=== PATIENT | male | born 1970 | race Caucasian/White ===

== ENCOUNTER 2019-11-29 16:46 | Inpatient (IN) ==
[2019-11-29 17:29] LABS: Hematocrit 36.8 % (37.5-50.1); Hemoglobin 12.4 g/dL (12.9-16.9); Immature Granulocytes % 0.1 % (0-4); Lymphocytes % 34.1 %; Mean Corpuscular HGB Conc 33.7 g/dL (31.6-35.5); Mean Corpuscular Hemoglobin 31.6 pg (28.0-33.3); Mean Corpuscular Volume 93.9 fL (83.0-100.0); Mean Platelet Volume 8.6 fL (9.4-12.4); Platelet Count 410 K/mcL (140-400); Red Blood Count 3.92 M/mcL (4.19-5.50); Red Cell Distribution Width 12.5 % (11.5-14.5); Segmented Neutrophils % 50.5 %; White Blood Count 7.3 K/mcL (4.3-11.1)
[2019-11-29 17:30] LABS: Basophils % 0.4 %; Eosinophils # 0.3 K/mcL (0.0-0.6); Lymphocytes # 2.5 K/mcL (0.6-4.6); Monocytes # 0.8 K/mcL (0.0-1.3); Monocytes % 10.9 %; Neutrophils # 3.7 K/mcL (1.6-8.9)
[2019-11-29 17:56] LABS: Alanine Aminotransferase 44 Units/L (7-52); Albumin 3.6 g/dL (3.5-5.7); Albumin/Globulin Ratio 1.2 (1.1-2.2); Alkaline Phosphatase 110 Units/L (34-104); Aspartate Amino Transferase 28 Units/L (13-39); BUN/Creatinine Ratio 18 (6-26); Bilirubin,Total 0.4 mg/dL (0.3-1.0); Blood Urea Nitrogen 34 mg/dL (6-20); Calcium 9.1 mg/dL (8.6-10.3); Carbon Dioxide 24 mEq/L (23-29); Chloride 108 mEq/L (98-107); Globulin 2.9 g/dL (2.4-3.5); Glucose 124 mg/dL (70-105); Osmolality,Calculated 293 (280-300); Sodium 137 mEq/L (136-145); Total Protein 6.5 g/dL (6.4-8.9); Troponin I < 0.03 ng/mL (< 0.04); eGFR For African Americans 46 (> 60); eGFR For Non-African Americans 38 (> 60)
[2019-11-29] MEDS ORDERED: Furosemide 40 MG/4 ML VIAL IVP ONE (21:01)
[2019-11-29] MEDS ORDERED: Naloxone 0.4 MG/ML INJ IVP PRN (22:00)
[2019-11-29] MEDS ORDERED: Perflutren Lipid Microsphere 1.3 ML in 0.9 % Sodium Chloride 8.7 ML IVP PRN (22:01)
[2019-11-29] MEDS ORDERED: Dextrose Gel 15 GM/37.5 ML TUBE PO PRN ×2 (22:04)
[2019-11-29] MEDS ORDERED: *HR* Dextrose 50 % in Water (Vial) 50 ML VIAL IVP PRN (22:04)
[2019-11-29] MEDS ORDERED: D5% in Water 1,000 ML IVC PRN (22:04)
[2019-11-29] MEDS ORDERED: Gabapentin 300 MG CAPSULE PO SCH (22:30)
[2019-11-29] MEDS: *HR* HYDROcodone/Acet 5/325 mg TABLET PO PRN (22:31)
[2019-11-29 23:17] LABS: Bilirubin,Urine Negative (Negative); Blood,Urine Trace (Negative); Clarity,Urine Clear (Clear); Color,Urine Colorless (Yellow); Glucose,Urine (UA) Normal (Normal); Hyaline Casts,Urine Few per lpf (None Seen); Ketones,Urine Negative (Negative); Leukocyte Esterase,Urine Negative (Negative); Mucus,Urine Few per lpf (None-Few); Nitrite,Urine Negative (Negative); Protein,Urine 100 mg/dL (Neg-Trace); RBC,Urine 0-3 per hpf (0-3); Specific Gravity,Urine 1.007 (1.010-1.025); Urobilinogen,Urine Normal (Normal); WBC,Urine 0-3 per hpf (0-3)
[2019-11-29 23:24] LABS: Protein/Creatinine Ratio,Urine 5.56 mg/mg (0.00-0.20); Sodium, Urine 95.6 mEq/L
[2019-11-30] MEDS: Insulin DETEMIR 100 UNIT/ML X5UNITS SQ SCH ×2 (00:02→20:17)
[2019-11-30 04:40] LABS: Hematocrit 32.9 % (37.5-50.1); Mean Corpuscular HGB Conc 33.4 g/dL (31.6-35.5); Mean Corpuscular Hemoglobin 31.4 pg (28.0-33.3); Mean Platelet Volume 8.9 fL (9.4-12.4); Platelet Count 329 K/mcL (140-400); Red Cell Distribution Width 12.5 % (11.5-14.5); White Blood Count 5.5 K/mcL (4.3-11.1)
[2019-11-30 04:59] LABS: Calcium 8.6 mg/dL (8.6-10.3); Potassium 4.5 mEq/L (3.5-5.1)
[2019-11-30] MEDS: *HR* HYDROcodone/Acet 5/325 mg TABLET PO PRN ×3 (05:40→19:23)
[2019-11-30] MEDS: *HR* Heparin 5,000 UNIT/ML VIAL SQ SCH ×3 (05:40→20:14)
[2019-11-30] MEDS ORDERED: Gabapentin 300 MG CAPSULE PO SCH (06:00)
[2019-11-30] MEDS: Aspirin Enteric Coated 81 MG Tablet PO SCH (08:24)
[2019-11-30] MEDS: Insulin LISPRO 300 UNITS/3 ML VIAL SQ SCH ×3 (08:24→17:04)
[2019-11-30] MEDS ORDERED: NON-FORMULARY MEDICATION 1 EACH EACH (Tadalafil [Cialis] 20 MG) PO SCH (09:00)
[2019-11-30] MEDS: Furosemide 40 MG/4 ML VIAL IVP SCH ×2 (12:16→17:04)
[2019-11-30 12:43] LABS: Complement C3 141 mg/dL (87-200)
[2019-11-30] MEDS: GENVOYA PO SCH (14:23)
[2019-11-30 17:26] LABS: Calcium 8.7 mg/dL (8.6-10.3); Potassium 5.4 mEq/L (3.5-5.1)
[2019-12-01] MEDS: *HR* HYDROcodone/Acet 5/325 mg TABLET PO PRN ×2 (01:28→17:13)
[2019-12-01 03:15] LABS: Basophils % 0.4 %; Eosinophils # 0.2 K/mcL (0.0-0.6); Eosinophils % 4.3 %; Hematocrit 33.4 % (37.5-50.1); Hemoglobin 11.3 g/dL (12.9-16.9); Immature Granulocytes % 0.2 % (0-4); Lymphocytes % 38.4 %; Mean Corpuscular HGB Conc 33.8 g/dL (31.6-35.5); Mean Corpuscular Hemoglobin 31.6 pg (28.0-33.3); Mean Corpuscular Volume 93.3 fL (83.0-100.0); Mean Platelet Volume 8.8 fL (9.4-12.4); Monocytes # 0.7 K/mcL (0.0-1.3); Neutrophils # 2.2 K/mcL (1.6-8.9); Platelet Count 359 K/mcL (140-400); Red Blood Count 3.58 M/mcL (4.19-5.50); Red Cell Distribution Width 12.3 % (11.5-14.5); Segmented Neutrophils % 43.7 %; White Blood Count 5.1 K/mcL (4.3-11.1)
[2019-12-01 03:33] LABS: Chol/HDL Ratio 5.4 (0-4.9)
[2019-12-01 04:00] LABS: Hepatitis B Surface Antigen Nonreactive (Nonreactive)
[2019-12-01 04:29] LABS: Hepatitis B Core IgM Nonreactive (Nonreactive); Hepatitis C Virus Antibody Nonreactive (Nonreactive)
[2019-12-01 04:31] LABS: Hepatitis A Antibody IgM Nonreactive (Nonreactive)
[2019-12-01] MEDS: *HR* Heparin 5,000 UNIT/ML VIAL SQ SCH ×2 (05:37→14:43)
[2019-12-01] MEDS: Insulin LISPRO 300 UNITS/3 ML VIAL SQ SCH ×3 (07:54→17:14)
[2019-12-01 08:17] LABS: Prothrombin Time 11.4 Seconds (9.4-12.1)
[2019-12-01] MEDS: Furosemide 40 MG/4 ML VIAL IVP SCH ×2 (08:39→17:13)
[2019-12-01] MEDS: amLODIPine 5 MG TABLET PO SCH ×2 (08:39→09:38)
[2019-12-01] MEDS: Aspirin Enteric Coated 81 MG Tablet PO SCH (09:37)
[2019-12-01] MEDS ORDERED: *HR* LORazepam 2 MG/ML VIAL IVP ONE ×2 (09:57→14:15)
[2019-12-01] MEDS ORDERED: amLODIPine 5 MG TABLET PO ONE (10:00)
[2019-12-01 12:15] LABS: Calcium 8.7 mg/dL (8.6-10.3); Potassium 5.3 mEq/L (3.5-5.1)
[2019-12-01] MEDS: GENVOYA PO SCH (12:58)
[2019-12-01] MEDS: Insulin DETEMIR 100 UNIT/ML X5UNITS SQ SCH (19:52)
[2019-12-02] MEDS: *HR* Heparin 5,000 UNIT/ML VIAL SQ SCH ×5 (00:09→21:37)
[2019-12-02] MEDS ORDERED: *HR* Metoprolol 5 MG/5 ML VIAL IVP ONE (01:42)
[2019-12-02] MEDS ORDERED: Melatonin 3 MG TABLET PO ONE ×2 (01:43→20:46)
[2019-12-02 03:35] LABS: Hematocrit 35.5 % (37.5-50.1); Hemoglobin 11.8 g/dL (12.9-16.9); Mean Corpuscular HGB Conc 33.2 g/dL (31.6-35.5); Mean Corpuscular Hemoglobin 31.6 pg (28.0-33.3); Mean Corpuscular Volume 95.2 fL (83.0-100.0); Mean Platelet Volume 9.4 fL (9.4-12.4); Platelet Count 443 K/mcL (140-400); Red Blood Count 3.73 M/mcL (4.19-5.50); Red Cell Distribution Width 12.4 % (11.5-14.5); White Blood Count 6.4 K/mcL (4.3-11.1)
[2019-12-02 03:54] LABS: Potassium 4.7 mEq/L (3.5-5.1)
[2019-12-02] MEDS: Insulin LISPRO 300 UNITS/3 ML VIAL SQ SCH ×3 (08:15→16:11)
[2019-12-02] MEDS: Furosemide 40 MG/4 ML VIAL IVP SCH ×2 (08:15→16:12)
[2019-12-02] MEDS ORDERED: amLODIPine 5 MG TABLET PO STA (09:00)
[2019-12-02] MEDS ORDERED: *HR* Labetalol 20 MG/4 ML SYRINGE IVP PRN (09:03)
[2019-12-02] MEDS ORDERED: *HR* LORazepam 2 MG/ML VIAL IVP PRN (09:04)
[2019-12-02] MEDS: amLODIPine 5 MG TABLET PO SCH (10:00)
[2019-12-02] MEDS ORDERED: 0.9 % Sodium Chloride 500 ML ONE (10:38)
[2019-12-02] MEDS ORDERED: *HR* FentaNYL (PF) 100 MCG/2 ML VIAL IVP ONE (10:55)
[2019-12-02] MEDS ORDERED: *HR* Midazolam HCl 2 MG/2 ML VIAL IVP ONE (10:55)
[2019-12-02] MEDS ORDERED: *HR* Midazolam HCl 2 MG/2 ML VIAL ONE (10:58)
[2019-12-02] MEDS ORDERED: *HR* FentaNYL (PF) 100 MCG/2 ML VIAL ONE (10:58)
[2019-12-02] MEDS: GENVOYA PO SCH (11:45)
[2019-12-02] MEDS: Insulin DETEMIR 100 UNIT/ML X5UNITS SQ SCH ×2 (15:17→21:40)
[2019-12-02] MEDS: *HR* HYDROcodone/Acet 5/325 mg TABLET PO PRN (21:37)
[2019-12-03] MEDS: *HR* Heparin 5,000 UNIT/ML VIAL SQ SCH ×2 (05:43→14:35)
[2019-12-03 06:39] LABS: ANA IgG by ELISA DETECTED (None Detected)
[2019-12-03 08:10] LABS: Calcium 9.1 mg/dL (8.6-10.3); Magnesium 2.3 mg/dL (1.6-2.6); Phosphorous 4.7 mg/dL (2.7-4.5); Potassium 4.1 mEq/L (3.5-5.1)
[2019-12-03] MEDS: Furosemide 40 MG/4 ML VIAL IVP SCH ×2 (08:59→16:34)
[2019-12-03] MEDS: amLODIPine 5 MG TABLET PO SCH (08:59)
[2019-12-03] MEDS: GENVOYA PO SCH (08:59)
[2019-12-03] MEDS: Insulin LISPRO 300 UNITS/3 ML VIAL SQ SCH ×3 (09:00→16:33)
[2019-12-03] MEDS: Insulin DETEMIR 100 UNIT/ML X5UNITS SQ SCH ×2 (09:00→20:56)
[2019-12-03 12:01] LABS: Serine Protease-3 Antibody 2 AU/mL (0-19)
[2019-12-03] MEDS ORDERED: *HR* Heparin 5,000 UNIT/ML VIAL IVP ONE (17:36)
[2019-12-03] MEDS ORDERED: *HR* Heparin 5,000 UNIT/ML VIAL IVP PRN ×2 (17:36)
[2019-12-03 18:43] LABS: Heparin anti-factor XA UFH 0.11 IU/mL (0.30-0.70); INR 0.9; Prothrombin Time 10.1 Seconds (9.4-12.1)
[2019-12-03 18:45] LABS: Mean Corpuscular HGB Conc 34.3 g/dL (31.6-35.5); Mean Corpuscular Hemoglobin 32.5 pg (28.0-33.3); Mean Platelet Volume 8.9 fL (9.4-12.4); Platelet Count 526 K/mcL (140-400); Red Blood Count 4.21 M/mcL (4.19-5.50); Red Cell Distribution Width 12.4 % (11.5-14.5); White Blood Count 7.5 K/mcL (4.3-11.1)
[2019-12-03 18:46] LABS: Hemoglobin 13.7 g/dL (12.9-16.9)
[2019-12-03 18:57] LABS: % Iron Saturation 23 % (20-55); Iron 74 mcg/dL (65-175); Transferrin 234 mg/dL (203-362)
[2019-12-03 19:15] LABS: Ferritin 90 ng/mL (20-250)
[2019-12-03] MEDS: *HR* HYDROcodone/Acet 5/325 mg TABLET PO PRN (20:53)
[2019-12-03] MEDS: Heparin 25,000UNIT/250ML 1/2NS 25,000 UNIT/250 ML IV.SOLN IVC SCH (20:58)
[2019-12-03 23:10] LABS: ANA HEp-2 IgG IFA DETECTED (<1:80); Anti Nuclear Ab Pattern HOMOGENEOUS
[2019-12-04 03:44] LABS: Calcium 8.8 mg/dL (8.6-10.3); Potassium 4.5 mEq/L (3.5-5.1)
[2019-12-04] MEDS: Insulin LISPRO 300 UNITS/3 ML VIAL SQ SCH ×3 (08:22→17:46)
[2019-12-04] MEDS: Furosemide 40 MG/4 ML VIAL IVP SCH ×2 (08:22→17:48)
[2019-12-04] MEDS: Insulin DETEMIR 100 UNIT/ML X5UNITS SQ SCH ×2 (08:23→21:17)
[2019-12-04] MEDS: amLODIPine 5 MG TABLET PO SCH (08:23)
[2019-12-04] MEDS: GENVOYA PO SCH (08:24)
[2019-12-04] MEDS ORDERED: Insulin DETEMIR 100 UNIT/ML X5UNITS SQ ONE (12:24)
[2019-12-04 12:40] LABS: GBM IgG Multiplex Bead Assay 0 AU/mL (0-19); Glomerular Basement Memb IgG NEGATIVE (Negative)
[2019-12-04] MEDS: *HR* HYDROcodone/Acet 5/325 mg TABLET PO PRN (20:06)
[2019-12-04] MEDS: Heparin 25,000UNIT/250ML 1/2NS 25,000 UNIT/250 ML IV.SOLN IVC SCH (20:13)
[2019-12-04] MEDS ORDERED: Insulin DETEMIR 100 UNIT/ML X5UNITS SQ SCH (21:00)
[2019-12-04] MEDS: *HR* LORazepam 0.5 MG TABLET PO PRN (21:14)
[2019-12-05] MEDS: *HR* HYDROcodone/Acet 5/325 mg TABLET PO PRN ×2 (02:06→19:48)
[2019-12-05 04:44] LABS: Basophils % 0.1 %; Eosinophils % 0.1 %; Hematocrit 33.6 % (37.5-50.1); Immature Granulocytes % 0.5 % (0-4); Lymphocytes # 1.4 K/mcL (0.6-4.6); Lymphocytes % 9.6 %; Mean Corpuscular HGB Conc 33.9 g/dL (31.6-35.5); Mean Corpuscular Hemoglobin 31.4 pg (28.0-33.3); Mean Corpuscular Volume 92.6 fL (83.0-100.0); Mean Platelet Volume 9.5 fL (9.4-12.4); Monocytes # 0.4 K/mcL (0.0-1.3); Monocytes % 2.7 %; Neutrophils # 12.4 K/mcL (1.6-8.9); Platelet Count 485 K/mcL (140-400); Red Blood Count 3.63 M/mcL (4.19-5.50); Red Cell Distribution Width 12.1 % (11.5-14.5)
[2019-12-05 04:56] LABS: White Blood Count 14.2 K/mcL (4.3-11.1)
[2019-12-05 04:57] LABS: Hemoglobin 11.4 g/dL (12.9-16.9)
[2019-12-05 05:03] LABS: Albumin 3.3 g/dL (3.5-5.7); Calcium 8.7 mg/dL (8.6-10.3); Phosphorous 4.1 mg/dL (2.7-4.5); Potassium 4.2 mEq/L (3.5-5.1)
[2019-12-05] MEDS: Insulin DETEMIR 100 UNIT/ML X5UNITS SQ SCH ×2 (08:27→21:17)
[2019-12-05] MEDS: Insulin LISPRO 300 UNITS/3 ML VIAL SQ SCH ×3 (08:27→17:19)
[2019-12-05] MEDS: GENVOYA PO SCH (08:28)
[2019-12-05] MEDS: amLODIPine 5 MG TABLET PO SCH (08:28)
[2019-12-05 15:10] LABS: Total Volume 24 Hour,Urine 2.67 Liters (0.80-1.80)
[2019-12-05 15:52] LABS: Protein/Creatinine Ratio,Urine 4.11 mg/mg (0.00-0.20)
[2019-12-05 17:26] LABS: APTT (LE Anticoag) 40 sec (32-48); Diluted Russell Viper Venom 44 sec (33-44); PT (LE-Anticoag) 12.8 sec (12.0-15.5)
[2019-12-05] MEDS ORDERED: Warfarin perPT PO PRN (18:00)
[2019-12-05] MEDS ORDERED: *HR* Warfarin 5 MG TABLET PO ONE (18:00)
[2019-12-05] MEDS: *HR* LORazepam 0.5 MG TABLET PO PRN (19:48)
[2019-12-05] MEDS: Heparin 25,000UNIT/250ML 1/2NS 25,000 UNIT/250 ML IV.SOLN IVC SCH (20:16)
[2019-12-06 02:15] LABS: Prothrombin Time 11.4 Seconds (9.4-12.1)
[2019-12-06 02:25] LABS: Albumin 3.1 g/dL (3.5-5.7); Albumin/Globulin Ratio 1.1 (1.1-2.2); Bilirubin,Direct 0.1 mg/dL (0.0-0.2); Bilirubin,Indirect 0.1 mg/dL (0.0-1.0); Bilirubin,Total 0.2 mg/dL (0.3-1.0); Calcium 8.6 mg/dL (8.6-10.3); Globulin 2.8 g/dL (2.4-3.5); Potassium 4.1 mEq/L (3.5-5.1); Total Protein 5.9 g/dL (6.4-8.9)
[2019-12-06] MEDS: amLODIPine 5 MG TABLET PO SCH (08:14)
[2019-12-06] MEDS: Insulin DETEMIR 100 UNIT/ML X5UNITS SQ SCH (08:15)
[2019-12-06] MEDS: Insulin LISPRO 300 UNITS/3 ML VIAL SQ SCH ×2 (08:15→11:14)
[2019-12-06] MEDS: GENVOYA PO SCH (08:15)
[2019-12-06] MEDS ORDERED: Albumin 25% 25gram/100mL 25 GM/100 ML IV.SOLN IVPB ONE (10:05)
[2019-12-06 13:56] VITALS: BP 152/72
[2019-12-06 13:58] LABS: Calcium 8.5 mg/dL (8.6-10.3); Potassium 4.2 mEq/L (3.5-5.1)
[2019-12-06] MEDS ORDERED: *HR* Warfarin 5 MG TABLET PO ONE (18:00)
[2019-12-08 20:03] LABS: APTT (LE Anticoag) 49 sec (32-48); Diluted Russell Viper Venom 38 sec (33-44); LE APTT D Heparin Neutralized 35 sec (32-48); LE Coag Reptilase Time 17.7 sec (<=21.9); PT (LE-Anticoag) 13.1 sec (12.0-15.5)
== END 2019-12-06 16:10 | disposition home or self-care (01) | DRG 977 ==
LOC: 3ANU 16:46 → EMEROOARM 16:46 → SUATTDRO 21:06 → 3ANU 22:11 → SUATTDRO 12-02 21:11
PROVIDERS: ADMIT Internal Medicine; ATTEND Internal Medicine

== ENCOUNTER 2020-06-08 20:57 | Inpatient (IN) ==
[2020-06-08 22:34] LABS: Basophils % 0.3 %; Eosinophils # 0.3 K/mcL (0.0-0.6); Eosinophils % 4.5 %; Hematocrit 28.9 % (37.5-50.1); Hemoglobin 9.4 g/dL (12.9-16.9); Immature Granulocytes % 0.1 % (0-4); Lymphocytes # 2.5 K/mcL (0.6-4.6); Lymphocytes % 32.9 %; Mean Corpuscular HGB Conc 32.5 g/dL (31.6-35.5); Mean Corpuscular Hemoglobin 29.3 pg (28.0-33.3); Mean Platelet Volume 8.7 fL (9.4-12.4); Monocytes # 1.1 K/mcL (0.0-1.3); Neutrophils # 3.6 K/mcL (1.6-8.9); Platelet Count 355 K/mcL (140-400); Red Blood Count 3.21 M/mcL (4.19-5.50); Red Cell Distribution Width 13.1 % (11.5-14.5); Segmented Neutrophils % 48.2 %; White Blood Count 7.6 K/mcL (4.3-11.1)
[2020-06-08 22:53] LABS: Calcium 8.4 mg/dL (8.6-10.3); Potassium 4.8 mEq/L (3.5-5.1)
[2020-06-08] MEDS ORDERED: D5% in 0.45% NACL 1,000 ML IVC SCH (23:45)
[2020-06-08] MEDS ORDERED: Naloxone 0.4 MG/ML INJ IVP PRN (23:55)
[2020-06-08] MEDS ORDERED: Melatonin 3 MG TABLET PO PRN (23:55)
[2020-06-08] MEDS ORDERED: D5% in Water 1,000 ML IVC PRN (23:56)
[2020-06-08] MEDS ORDERED: Dextrose Gel 15 GM/37.5 ML TUBE PO PRN ×2 (23:56)
[2020-06-08] MEDS ORDERED: *HR* Dextrose 50 % in Water (Vial) 50 ML VIAL IVP PRN (23:56)
[2020-06-09 06:30] LABS: Hematocrit 28.7 % (37.5-50.1); Hemoglobin 9.1 g/dL (12.9-16.9); Mean Corpuscular HGB Conc 31.7 g/dL (31.6-35.5); Mean Corpuscular Hemoglobin 29.4 pg (28.0-33.3); Mean Corpuscular Volume 92.6 fL (83.0-100.0); Mean Platelet Volume 8.9 fL (9.4-12.4); Platelet Count 312 K/mcL (140-400); Red Cell Distribution Width 13.2 % (11.5-14.5); White Blood Count 9.9 K/mcL (4.3-11.1)
[2020-06-09 07:02] LABS: Calcium 8.6 mg/dL (8.6-10.3); Potassium 4.4 mEq/L (3.5-5.1); Thyroid Stimulating Hormone 29.746 mcIU/mL (0.340-5.600)
[2020-06-09 14:46] LABS: INR 1.7; Prothrombin Time 19.3 Seconds (9.4-12.1)
[2020-06-09 15:42] LABS: Estimated Average Glucose 169 mg/dl; Hemoglobin A1C 7.5 %
[2020-06-09] MEDS ORDERED: Ondansetron 4 MG/2 ML VIAL IVP PRN (15:56)
[2020-06-09] MEDS ORDERED: Insulin LISPRO 300 UNITS/3 ML VIAL SUBQ SCH (17:00)
[2020-06-09] MEDS: Insulin NPH/REG 70/30 100 UNIT/ML (x5UNIT) SUBQ SCH (17:11)
[2020-06-09] MEDS ORDERED: *HR* HYDROcodone/Acet 10/325 mg TABLET PO PRN (17:49)
[2020-06-09] MEDS ORDERED: *HR* Warfarin 7.5 MG TABLET PO ONE (18:00)
[2020-06-09] MEDS ORDERED: Warfarin perPT PO PRN (18:00)
[2020-06-09] MEDS ORDERED: Metoclopramide 10 MG/2 ML VIAL IVP ONE (18:13)
[2020-06-09] MEDS ORDERED: Prochlorperazine 10 MG/2 ML VIAL IVP PRN (21:02)
[2020-06-09] MEDS: Gabapentin 300 MG CAPSULE PO SCH (21:28)
[2020-06-09] MEDS: Aspirin Enteric Coated 81 MG Tablet PO SCH (21:28)
[2020-06-10] MEDS ORDERED: Insulin LISPRO 300 UNITS/3 ML VIAL SUBQ ONE (01:34)
[2020-06-10 02:15] LABS: INR 1.8; Prothrombin Time 20.1 Seconds (9.4-12.1)
[2020-06-10 02:26] LABS: Albumin/Globulin Ratio 1.3 (1.1-2.2); Bilirubin,Direct 0.1 mg/dL (0.0-0.2); Bilirubin,Indirect 0.3 mg/dL (0.0-1.0); Bilirubin,Total 0.4 mg/dL (0.3-1.0); Globulin 3.1 g/dL (2.4-3.5); Total Protein 7.1 g/dL (6.4-8.9)
[2020-06-10 02:43] LABS: Triiodothyronine (T3) Free 2.92 pg/mL (2.50-3.90)
[2020-06-10] MEDS ORDERED: Prochlorperazine 10 MG/2 ML VIAL IVP PRN (05:22)
[2020-06-10] MEDS: lisinopriL 10 MG TABLET PO SCH ×2 (07:52→08:12)
[2020-06-10] MEDS: Multivit/Ca/Min/Fe/FA 1 TAB TABLET PO SCH (07:52)
[2020-06-10] MEDS: Spironolactone 25 MG TABLET PO SCH ×2 (07:52→08:16)
[2020-06-10] MEDS: Insulin NPH/REG 70/30 100 UNIT/ML (x5UNIT) SUBQ SCH ×2 (07:52→16:33)
[2020-06-10] MEDS: amLODIPine 5 MG TABLET PO SCH ×2 (07:53→08:14)
[2020-06-10] MEDS ORDERED: 0.9 % Sodium Chloride 1,000 ML IVC ONE (07:54)
[2020-06-10] MEDS: SODIUM ZIRCONIUM CYCLOSILICATE 5 GM POWD.PACK PO SCH (08:03)
[2020-06-10] MEDS: Gabapentin 300 MG CAPSULE PO SCH ×3 (08:10→20:43)
[2020-06-10] MEDS: (Dolutegravir Sodium [Tivicay] 50 MG Tablet) PO SCH (08:17)
[2020-06-10] MEDS: COBICISTAT PO SCH (08:17)
[2020-06-10] MEDS: DARUNAVIR PO SCH (08:17)
[2020-06-10 08:42] LABS: Basophils % 0.1 %; Hematocrit 33.2 % (37.5-50.1); Immature Granulocytes % 0.3 % (0-4); Lymphocytes # 1.1 K/mcL (0.6-4.6); Mean Corpuscular HGB Conc 32.8 g/dL (31.6-35.5); Mean Corpuscular Hemoglobin 29.5 pg (28.0-33.3); Mean Corpuscular Volume 89.7 fL (83.0-100.0); Mean Platelet Volume 8.9 fL (9.4-12.4); Monocytes # 0.7 K/mcL (0.0-1.3); Monocytes % 4.9 %; Neutrophils # 11.4 K/mcL (1.6-8.9); Platelet Count 459 K/mcL (140-400); Red Cell Distribution Width 12.9 % (11.5-14.5); Segmented Neutrophils % 86.7 %; White Blood Count 13.2 K/mcL (4.3-11.1)
[2020-06-10 08:43] LABS: Hemoglobin 10.9 g/dL (12.9-16.9)
[2020-06-10] MEDS ORDERED: Furosemide 40 MG TABLET PO SCH (09:00)
[2020-06-10 09:05] LABS: Calcium 9.3 mg/dL (8.6-10.3); Potassium 5.4 mEq/L (3.5-5.1)
[2020-06-10 09:09] LABS: Troponin I 1.3 ng/mL (< 0.04)
[2020-06-10] MEDS ORDERED: *HR* Promethazine 25 MG/ML VIAL IM ONE (09:21)
[2020-06-10] MEDS ORDERED: *HR* Heparin 5,000 UNIT/ML VIAL IVP PRN ×2 (09:35)
[2020-06-10] MEDS ORDERED: *HR* Heparin 5,000 UNIT/ML VIAL IVP ONE (09:35)
[2020-06-10] MEDS ORDERED: DilTIAZem 50 MG/50 ML IV.SOLN IVC SCH (09:45)
[2020-06-10] MEDS ORDERED: 0.9 % Sodium Chloride 250 ML ONE (10:56)
[2020-06-10] MEDS: Heparin 25,000UNIT/250ML 1/2NS 25,000 UNIT/250 ML IV.SOLN IVC SCH (11:29)
[2020-06-10] MEDS ORDERED: Perflutren Lipid Microsphere 1.3 ML in 0.9 % Sodium Chloride 8.7 ML IVP PRN (12:20)
[2020-06-10] MEDS ORDERED: carvediloL 6.25 MG TABLET PO SCH (17:00)
[2020-06-10] MEDS: Aspirin Enteric Coated 81 MG Tablet PO SCH (20:43)
[2020-06-10] MEDS: *HR* Metoprolol 5 MG/5 ML VIAL IVP SCH (23:59)
[2020-06-11] MEDS: *HR* Metoprolol 5 MG/5 ML VIAL IVP SCH ×3 (05:08→17:51)
[2020-06-11 06:56] LABS: Heparin anti-factor XA UFH 0.43 IU/mL (0.30-0.70)
[2020-06-11 06:57] LABS: INR 2.8; Prothrombin Time 31.2 Seconds (9.4-12.1)
[2020-06-11] MEDS: Heparin 25,000UNIT/250ML 1/2NS 25,000 UNIT/250 ML IV.SOLN IVC SCH (08:10)
[2020-06-11] MEDS ORDERED: *HR* Promethazine 25 MG/ML VIAL IM PRN (08:51)
[2020-06-11 09:31] LABS: Calcium 9.1 mg/dL (8.6-10.3); Potassium 5.2 mEq/L (3.5-5.1)
[2020-06-11] MEDS: (Dolutegravir Sodium [Tivicay] 50 MG Tablet) PO SCH (10:05)
[2020-06-11] MEDS: COBICISTAT PO SCH (10:05)
[2020-06-11] MEDS: amLODIPine 5 MG TABLET PO SCH (10:05)
[2020-06-11] MEDS: Multivit/Ca/Min/Fe/FA 1 TAB TABLET PO SCH (10:05)
[2020-06-11] MEDS: SODIUM ZIRCONIUM CYCLOSILICATE 5 GM POWD.PACK PO SCH (10:05)
[2020-06-11] MEDS: DARUNAVIR PO SCH (10:05)
[2020-06-11] MEDS: Gabapentin 300 MG CAPSULE PO SCH (10:10)
[2020-06-11 10:33] LABS: Adenovirus Not Detected (Not Detect); Bordetella Pertussis Not Detected (Not Detect); Chlamydophila pneumoniae Not Detected (Not Detect); Coronavirus 229E Not Detected (Not Detect); Coronavirus HKU1 Not Detected (Not Detect); Coronavirus NL63 Not Detected (Not Detect); Coronavirus OC43 Not Detected (Not Detect); Human Metapneumovirus Not Detected (Not Detect); Human Rhinovirus/Enterovirus Not Detected (Not Detect); Influenza A Subtype 2009 H1 Not Detected (Not Detect); Influenza B Not Detected (Not Detect); Mycoplasma pneumoniae Not Detected (Not Detect); Parainfluenza Virus 1 Not Detected (Not Detect); Parainfluenza Virus 2 Not Detected (Not Detect); Parainfluenza Virus 3 Not Detected (Not Detect); Parainfluenza Virus 4 Not Detected (Not Detect); Respiratory Syncytial Virus Not Detected (Not Detect); SARS-CoV-2 Not Detected (Not Detect)
[2020-06-11 10:33] LABS: Basophils % 0.2 %; Eosinophils % 0.1 %; Hematocrit 36.3 % (37.5-50.1); Hemoglobin 11.4 g/dL (12.9-16.9); Immature Granulocytes % 0.4 % (0-4); Lymphocytes # 2.1 K/mcL (0.6-4.6); Lymphocytes % 15.7 %; Mean Corpuscular HGB Conc 31.4 g/dL (31.6-35.5); Mean Corpuscular Hemoglobin 28.4 pg (28.0-33.3); Mean Corpuscular Volume 90.5 fL (83.0-100.0); Mean Platelet Volume 9.3 fL (9.4-12.4); Monocytes # 1.4 K/mcL (0.0-1.3); Platelet Count 507 K/mcL (140-400); Red Blood Count 4.01 M/mcL (4.19-5.50); Red Cell Distribution Width 13.2 % (11.5-14.5); Segmented Neutrophils % 73.6 %; White Blood Count 13.6 K/mcL (4.3-11.1)
[2020-06-11 10:57] LABS: INR 2.7; Prothrombin Time 30.6 Seconds (9.4-12.1)
[2020-06-11] MEDS: Insulin NPH/REG 70/30 100 UNIT/ML (x5UNIT) SUBQ SCH ×2 (11:30→17:51)
[2020-06-11] MEDS ORDERED: Nitroglycerin 1,000 MCG/5 ML VIAL IV ONE (14:29)
[2020-06-11] MEDS ORDERED: 0.9 % Sodium Chloride 1,000 ML ONE (14:29)
[2020-06-11] MEDS ORDERED: *HR* Heparin 10,000 UNIT/10 ML VIAL ONE (14:29)
[2020-06-11] MEDS ORDERED: ISOVUE-370 200 ML INFUS..BTL ONE (14:29)
[2020-06-11] MEDS ORDERED: Heparin 1,000 UNITS/500 mL 500 ML ONE (14:29)
[2020-06-11] MEDS ORDERED: *HR* FentaNYL (PF) 100 MCG/2 ML VIAL ONE (14:53)
[2020-06-11] MEDS ORDERED: *HR* Midazolam HCl 2 MG/2 ML VIAL ONE (14:53)
[2020-06-11] MEDS: Metoclopramide 10 MG/2 ML VIAL IVP SCH (15:22)
[2020-06-11] MEDS: Aspirin Enteric Coated 81 MG Tablet PO SCH (21:14)
[2020-06-12] MEDS: *HR* Metoprolol 5 MG/5 ML VIAL IVP SCH ×2 (00:54→05:54)
[2020-06-12] MEDS: Metoclopramide 10 MG/2 ML VIAL IVP SCH ×2 (00:58→05:54)
[2020-06-12 03:44] LABS: INR 2.7; Prothrombin Time 30.4 Seconds (9.4-12.1)
[2020-06-12 08:31] VITALS: BP 159/91
[2020-06-12] MEDS ORDERED: *HR* Heparin 5,000 UNIT/ML VIAL IVP ONE (08:41)
[2020-06-12] MEDS ORDERED: *HR* Heparin 5,000 UNIT/ML VIAL IVP PRN ×2 (08:41)
[2020-06-12] MEDS ORDERED: Heparin 25,000UNIT/250ML 1/2NS 25,000 UNIT/250 ML IV.SOLN IVC SCH (08:45)
[2020-06-12] MEDS: Insulin NPH/REG 70/30 100 UNIT/ML (x5UNIT) SUBQ SCH (08:46)
[2020-06-12] MEDS: SODIUM ZIRCONIUM CYCLOSILICATE 5 GM POWD.PACK PO SCH (08:48)
[2020-06-12] MEDS: DARUNAVIR PO SCH (08:51)
[2020-06-12] MEDS: COBICISTAT PO SCH (08:51)
[2020-06-12] MEDS: (Dolutegravir Sodium [Tivicay] 50 MG Tablet) PO SCH (08:51)
[2020-06-12] MEDS: Multivit/Ca/Min/Fe/FA 1 TAB TABLET PO SCH (08:52)
[2020-06-12] MEDS ORDERED: Pantoprazole 40 MG VIAL IVP SCH (09:00)
[2020-06-14] MEDS ORDERED: Ergocalciferol (VIT D2) 50,000 UNIT (1.25MG) CAP PO SCH (17:49)
== END 2020-06-12 09:03 | disposition short-term general hospital (02) | DRG 281 ==
LOC: EMEROOARM 20:57 → 3ANU 20:57 → SUATTDRO 23:21 → 3ANU 23:55
PROVIDERS: ADMIT Student in an Organized Health Care Education/Training Program; ATTEND Student in an Organized Health Care Education/Training Program

== ENCOUNTER 2021-01-27 12:03 | Observation (INO) ==
[2021-01-27] MEDS ORDERED: 0.9 % Sodium Chloride 1,000 ML IV ONE (12:07)
[2021-01-27] MEDS ORDERED: Ondansetron 4 MG/2 ML VIAL IVP ONE (12:07)
[2021-01-27 12:40] LABS: Basophils % 0.4 %; Eosinophils # 0.2 K/mcL (0.0-0.6); Eosinophils % 1.8 %; Hematocrit 39.8 % (37.5-50.1); Hemoglobin 13.2 g/dL (12.9-16.9); Immature Granulocytes % 0.2 % (0-4); Lymphocytes # 2.2 K/mcL (0.6-4.6); Mean Corpuscular HGB Conc 33.2 g/dL (31.6-35.5); Mean Corpuscular Hemoglobin 28.5 pg (28.0-33.3); Mean Platelet Volume 9.4 fL (9.4-12.4); Monocytes # 0.7 K/mcL (0.0-1.3); Monocytes % 7.8 %; Platelet Count 348 K/mcL (140-400); Red Blood Count 4.63 M/mcL (4.19-5.50); Red Cell Distribution Width 12.2 % (11.5-14.5); Segmented Neutrophils % 65.8 %; White Blood Count 9.1 K/mcL (4.3-11.1)
[2021-01-27] MEDS ORDERED: Metoclopramide 10 MG/2 ML VIAL IVP ONE (12:47)
[2021-01-27 13:06] LABS: BUN/Creatinine Ratio 15 (6-26); Blood Urea Nitrogen 33 mg/dL (6-20); Calcium 9.5 mg/dL (8.6-10.3); Carbon Dioxide 25 mEq/L (23-29); Chloride 102 mEq/L (98-107); Glucose 258 mg/dL (70-105); Osmolality,Calculated 298 (280-300); Sodium 136 mEq/L (136-145); Troponin I < 0.03 ng/mL (< 0.04); eGFR For African Americans 38 (> 60); eGFR For Non-African Americans 32 (> 60)
[2021-01-27] MEDS: 0.9 % Sodium Chloride 1,000 ML IVC ONE ×2 (14:35→17:14)
[2021-01-27] MEDS ORDERED: Ondansetron 4 MG/2 ML VIAL IVP PRN ×2 (15:36→17:22)
[2021-01-27] MEDS ORDERED: Naloxone 0.4 MG/ML INJ IVP PRN (15:36)
[2021-01-27] MEDS ORDERED: Prochlorperazine 10 MG/2 ML VIAL IVP PRN ×2 (15:39→17:22)
[2021-01-27] MEDS ORDERED: Dextrose Gel 15 GM/37.5 ML TUBE PO PRN ×2 (15:41)
[2021-01-27] MEDS ORDERED: *HR* Dextrose 50 % in Water (Syg) 50 ML SYRINGE IVP PRN (15:41)
[2021-01-27] MEDS ORDERED: D5% in Water 1,000 ML IVC PRN (15:41)
[2021-01-27] MEDS ORDERED: *HR* Promethazine 25 MG/ML VIAL IM PRN (16:23)
[2021-01-27] MEDS: Insulin LISPRO 300 UNITS/3 ML VIAL SUBQ SCH ×2 (16:41→21:11)
[2021-01-27 17:06] LABS: Alanine Aminotransferase 46 Units/L (7-52); Albumin 3.9 g/dL (3.5-5.7); Albumin/Globulin Ratio 1.2 (1.1-2.2); Alkaline Phosphatase 103 Units/L (34-104); Aspartate Amino Transferase 27 Units/L (13-39); Bilirubin,Indirect 0.4 mg/dL (0.0-1.0); Bilirubin,Total 0.4 mg/dL (0.3-1.0); C-Reactive Protein < 5 mg/L (Less than 10); Globulin 3.3 g/dL (2.4-3.5); Lipase 62 Units/L (11-82); Total Protein 7.2 g/dL (6.4-8.9)
[2021-01-27 17:08] LABS: Magnesium 1.9 mg/dL (1.6-2.6); Phosphorous 2.6 mg/dL (2.7-4.5)
[2021-01-27] MEDS ORDERED: *HR* LORazepam 2 MG/ML VIAL IVP PRN (17:20)
[2021-01-27] MEDS ORDERED: Haloperidol Lactate 5 MG/ML VIAL IVP PRN (17:20)
[2021-01-27 17:22] LABS: Thyroid Stimulating Hormone 26.452 mcIU/mL (0.340-5.600)
[2021-01-27] MEDS: *HR* Heparin 5,000 UNIT/ML VIAL SQ SCH (17:22)
[2021-01-27] MEDS ORDERED: *HR* HYDROcodone/Acet 10/325 mg TABLET PO PRN (17:25)
[2021-01-27] MEDS ORDERED: *HR* Warfarin 5 MG TABLET PO SCH (17:30)
[2021-01-27] MEDS ORDERED: Warfarin perPT PO PRN (18:00)
[2021-01-27 18:05] LABS: INR 1.1; Prothrombin Time 12.2 Seconds (9.4-12.1)
[2021-01-27] MEDS ORDERED: *HR* Warfarin 10 MG TABLET PO ONE (18:24)
[2021-01-27] MEDS: Ringers Solution, Lactated 1,000 ML IVC SCH (20:48)
[2021-01-27] MEDS ORDERED: Insulin DETEMIR 100 UNIT/ML X5UNITS SUBQ SCH (21:00)
[2021-01-27] MEDS: carvediloL 6.25 MG TABLET PO SCH (21:11)
[2021-01-27] MEDS: Gabapentin 300 MG CAPSULE PO SCH (21:11)
[2021-01-27] MEDS: Furosemide 40 MG TABLET PO SCH (21:11)
[2021-01-27 23:44] LABS: Estimated Average Glucose 232 mg/dl; Hemoglobin A1C 9.7 %
[2021-01-28 01:45] LABS: Protein/Creatinine Ratio,Urine 17.14 mg/mg (0.00-0.20)
[2021-01-28] MEDS: Ringers Solution, Lactated 1,000 ML IVC SCH ×3 (03:18→18:29)
[2021-01-28] MEDS: *HR* Heparin 5,000 UNIT/ML VIAL SQ SCH ×2 (04:16→18:29)
[2021-01-28 05:29] LABS: INR 1.1; Prothrombin Time 12.1 Seconds (9.4-12.1)
[2021-01-28 05:32] LABS: Albumin 3.6 g/dL (3.5-5.7); Albumin/Globulin Ratio 1.2 (1.1-2.2); Bilirubin,Total 0.5 mg/dL (0.3-1.0); Calcium 9.4 mg/dL (8.6-10.3); Potassium 4.2 mEq/L (3.5-5.1); Total Protein 6.6 g/dL (6.4-8.9)
[2021-01-28] MEDS: Insulin LISPRO 300 UNITS/3 ML VIAL SUBQ SCH ×4 (09:04→19:50)
[2021-01-28] MEDS: Furosemide 40 MG TABLET PO SCH ×2 (09:16→19:49)
[2021-01-28] MEDS: Gabapentin 300 MG CAPSULE PO SCH ×2 (09:16→19:49)
[2021-01-28] MEDS: carvediloL 6.25 MG TABLET PO SCH ×2 (09:16→16:50)
[2021-01-28] MEDS ORDERED: *HR* LORazepam 2 MG/ML VIAL IVP ONE (10:17)
[2021-01-28] MEDS: *HR* Labetalol 20 MG/4 ML SYRINGE IVP SCH ×4 (10:38→20:19)
[2021-01-28] MEDS: Metoclopramide 10 MG/2 ML VIAL IVP SCH (15:23)
[2021-01-28] MEDS: Ondansetron 4 MG/2 ML VIAL IVP SCH ×3 (15:23→20:19)
[2021-01-28] MEDS: amLODIPine 5 MG TABLET PO SCH (17:15)
[2021-01-28] MEDS ORDERED: *HR* Warfarin 5 MG TABLET PO SCH (17:25)
[2021-01-28] MEDS ORDERED: *HR* Warfarin 10 MG TABLET PO ONE (18:00)
[2021-01-28] MEDS ORDERED: Insulin DETEMIR 100 UNIT/ML X5UNITS SUBQ SCH (21:00)
[2021-01-29] MEDS: Metoclopramide 10 MG/2 ML VIAL IVP SCH ×3 (00:35→05:52)
[2021-01-29] MEDS: Ondansetron 4 MG/2 ML VIAL IVP SCH ×3 (01:01→08:30)
[2021-01-29] MEDS: Ringers Solution, Lactated 1,000 ML IVC SCH (01:27)
[2021-01-29] MEDS: *HR* Labetalol 20 MG/4 ML SYRINGE IVP SCH ×2 (01:27→05:51)
[2021-01-29] MEDS: *HR* Heparin 5,000 UNIT/ML VIAL SQ SCH (05:51)
[2021-01-29 07:07] LABS: Hematocrit 38.1 % (37.5-50.1); Hemoglobin 12.3 g/dL (12.9-16.9); Mean Corpuscular HGB Conc 32.3 g/dL (31.6-35.5); Mean Corpuscular Hemoglobin 28.4 pg (28.0-33.3); Mean Platelet Volume 9.1 fL (9.4-12.4); Platelet Count 384 K/mcL (140-400); Red Blood Count 4.33 M/mcL (4.19-5.50); Red Cell Distribution Width 12.7 % (11.5-14.5)
[2021-01-29 07:09] VITALS: BP 199/91; PULSE 88; TEMP 98.1; O2SAT 94
[2021-01-29 07:12] LABS: White Blood Count 13.7 K/mcL (4.3-11.1)
[2021-01-29 07:16] LABS: INR 1.3
[2021-01-29 07:26] LABS: Albumin 3.3 g/dL (3.5-5.7); Albumin/Globulin Ratio 1.2 (1.1-2.2); Bilirubin,Direct 0.1 mg/dL (0.0-0.2); Bilirubin,Indirect 0.4 mg/dL (0.0-1.0); Bilirubin,Total 0.5 mg/dL (0.3-1.0); Calcium 9.2 mg/dL (8.6-10.3); Globulin 2.8 g/dL (2.4-3.5); Phosphorous 2.4 mg/dL (2.7-4.5); Potassium 3.8 mEq/L (3.5-5.1); Total Protein 6.1 g/dL (6.4-8.9)
[2021-01-29] MEDS ORDERED: carvediloL 6.25 MG TABLET PO SCH (08:00)
[2021-01-29] MEDS: Gabapentin 300 MG CAPSULE PO SCH (08:26)
[2021-01-29] MEDS: Furosemide 40 MG TABLET PO SCH (08:30)
[2021-01-29] MEDS: amLODIPine 5 MG TABLET PO SCH (08:30)
[2021-01-29] MEDS ORDERED: lisinopriL 10 MG TABLET PO SCH (09:00)
[2021-01-29] MEDS: Insulin LISPRO 300 UNITS/3 ML VIAL SUBQ SCH (09:17)
[2021-01-29] MEDS ORDERED: *HR* Warfarin 10 MG TABLET PO ONE (18:00)
== END 2021-01-29 10:59 | disposition home or self-care (01) ==
LOC: EMEROOARM 12:03 → 3BNU 12:03
PROVIDERS: ADMIT Internal Medicine; ATTEND Internal Medicine

== ENCOUNTER 2021-02-11 18:29 | Inpatient (IN) ==
[2021-02-11 19:27] LABS: Basophils % 0.4 %; Eosinophils # 0.3 K/mcL (0.0-0.6); Eosinophils % 4.2 %; Hematocrit 32.6 % (37.5-50.1); Hemoglobin 10.3 g/dL (12.9-16.9); Immature Granulocytes % 0.3 % (0-4); Lymphocytes # 2.2 K/mcL (0.6-4.6); Lymphocytes % 33.5 %; Mean Corpuscular HGB Conc 31.6 g/dL (31.6-35.5); Mean Corpuscular Hemoglobin 28.9 pg (28.0-33.3); Mean Corpuscular Volume 91.3 fL (83.0-100.0); Mean Platelet Volume 9.2 fL (9.4-12.4); Monocytes # 0.8 K/mcL (0.0-1.3); Monocytes % 12.6 %; Neutrophils # 3.3 K/mcL (1.6-8.9); Platelet Count 452 K/mcL (140-400); Red Blood Count 3.57 M/mcL (4.19-5.50); Red Cell Distribution Width 13.1 % (11.5-14.5); White Blood Count 6.7 K/mcL (4.3-11.1)
[2021-02-11 19:36] LABS: INR 1.3; Prothrombin Time 14.7 Seconds (9.4-12.1)
[2021-02-11 19:39] LABS: Activated Partial Thrombo Time 24.4 Seconds (26.0-36.0)
[2021-02-11 19:49] LABS: Albumin 3.5 g/dL (3.5-5.7); Albumin/Globulin Ratio 1.1 (1.1-2.2); Bilirubin,Total 0.3 mg/dL (0.3-1.0); Calcium 8.9 mg/dL (8.6-10.3); Globulin 3.1 g/dL (2.4-3.5); Potassium 5.1 mEq/L (3.5-5.1); Total Protein 6.6 g/dL (6.4-8.9)
[2021-02-11] MEDS ORDERED: 0.9 % Sodium Chloride 1,000 ML IV ONE (20:04)
[2021-02-11 21:59] LABS: Bilirubin,Urine Negative (Negative); Blood,Urine Negative (Negative); Clarity,Urine Clear (Clear); Color,Urine Light-Yellow (Yellow); Glucose,Urine (UA) 100 mg/dL (Normal); Hyaline Casts,Urine Moderate per lpf (None Seen); Ketones,Urine Negative (Negative); Leukocyte Esterase,Urine Negative (Negative); Mucus,Urine Few per lpf (None-Few); Nitrite,Urine Negative (Negative); PH,Urine 5.5 pH Units (5.0-8.0); Protein,Urine 100 mg/dL (Neg-Trace); RBC,Urine 0-3 per hpf (0-3); Specific Gravity,Urine 1.018 (1.010-1.025); Squamous Epithelial Cell,Urine Few per hpf (None-Few); Urobilinogen,Urine Normal (Normal); WBC,Urine 0-3 per hpf (0-3)
[2021-02-11 23:12] LABS: Calcium 8.4 mg/dL (8.6-10.3); Potassium 4.6 mEq/L (3.5-5.1)
[2021-02-12] MEDS ORDERED: Acetaminophen 325 MG TABLET PO PRN (01:42)
[2021-02-12] MEDS ORDERED: Ondansetron 4 MG/2 ML VIAL IVP PRN (01:42)
[2021-02-12] MEDS ORDERED: Melatonin 3 MG TABLET PO PRN (01:42)
[2021-02-12] MEDS ORDERED: Naloxone 0.4 MG/ML INJ IVP PRN (01:42)
[2021-02-12] MEDS ORDERED: *HR* Heparin 5,000 UNIT/ML VIAL IVP PRN ×4 (01:43→13:25)
[2021-02-12] MEDS ORDERED: *HR* Heparin 5,000 UNIT/ML VIAL IVP ONE ×2 (01:43→13:25)
[2021-02-12] MEDS ORDERED: *HR* Dextrose 50 % in Water (Syg) 50 ML SYRINGE IVP PRN (01:44)
[2021-02-12] MEDS ORDERED: D5% in Water 1,000 ML IVC PRN (01:44)
[2021-02-12] MEDS ORDERED: Dextrose Gel 15 GM/37.5 ML TUBE PO PRN ×2 (01:44)
[2021-02-12] MEDS ORDERED: 0.9 % Sodium Chloride 1,000 ML IVC SCH (01:45)
[2021-02-12] MEDS ORDERED: Heparin 25,000 UNIT/250 ML 25,000 UNIT/250 ML IV.SOLN IVC SCH (02:00)
[2021-02-12 06:30] LABS: Basophils % 0.5 %; Eosinophils # 0.3 K/mcL (0.0-0.6); Eosinophils % 4.9 %; Hematocrit 33.2 % (37.5-50.1); Hemoglobin 10.2 g/dL (12.9-16.9); Immature Granulocytes % 0.3 % (0-4); Lymphocytes # 2.2 K/mcL (0.6-4.6); Lymphocytes % 36.4 %; Mean Corpuscular HGB Conc 30.7 g/dL (31.6-35.5); Mean Corpuscular Hemoglobin 28.2 pg (28.0-33.3); Mean Corpuscular Volume 91.7 fL (83.0-100.0); Mean Platelet Volume 9.3 fL (9.4-12.4); Monocytes # 0.7 K/mcL (0.0-1.3); Monocytes % 11.3 %; Neutrophils # 2.8 K/mcL (1.6-8.9); Platelet Count 366 K/mcL (140-400); Red Blood Count 3.62 M/mcL (4.19-5.50); Red Cell Distribution Width 12.9 % (11.5-14.5); Segmented Neutrophils % 46.6 %; White Blood Count 6.1 K/mcL (4.3-11.1)
[2021-02-12 06:38] LABS: INR 1.4; Prothrombin Time 16.1 Seconds (9.4-12.1)
[2021-02-12 07:05] LABS: Albumin/Globulin Ratio 1.2 (1.1-2.2); Bilirubin,Total 0.2 mg/dL (0.3-1.0); Calcium 8.3 mg/dL (8.6-10.3); Globulin 2.5 g/dL (2.4-3.5); Magnesium 2.2 mg/dL (1.6-2.6); Phosphorous 4.1 mg/dL (2.7-4.5); Potassium 5.2 mEq/L (3.5-5.1); Total Protein 5.5 g/dL (6.4-8.9)
[2021-02-12] MEDS: Insulin LISPRO 300 UNITS/3 ML VIAL SUBQ SCH ×4 (08:03→21:08)
[2021-02-12 13:46] LABS: Uric Acid 11.2 mg/dL (2.3-7.6)
[2021-02-12] MEDS: Heparin 25,000 UNIT/250 ML 25,000 UNIT/250 ML IV.SOLN IVC SCH (14:45)
[2021-02-12] MEDS ORDERED: Warfarin perPT PO PRN (18:00)
[2021-02-12] MEDS ORDERED: *HR* Warfarin 5 MG TABLET PO ONE (18:00)
[2021-02-12 19:07] LABS: Bilirubin,Urine Negative (Negative); Blood,Urine Trace-lysed (Negative); Clarity,Urine Clear (Clear); Color,Urine Yellow (Yellow); Glucose,Urine (UA) 500 mg/dL (Normal); Ketones,Urine Negative (Negative); Leukocyte Esterase,Urine Negative (Negative); Nitrite,Urine Negative (Negative); PH,Urine 6.5 pH Units (5.0-8.0); Protein,Urine 30 mg/dL (Neg-Trace); Urobilinogen,Urine Normal (Normal)
[2021-02-12 19:11] LABS: RBC,Urine 0-3 per hpf (0-3); WBC,Urine 0-3 per hpf (0-3)
[2021-02-12 19:18] LABS: Sodium, Urine 56.2 mEq/L
[2021-02-13 06:44] LABS: Basophils % 0.3 %; Eosinophils # 0.1 K/mcL (0.0-0.6); Eosinophils % 0.8 %; Hematocrit 34.1 % (37.5-50.1); Hemoglobin 10.6 g/dL (12.9-16.9); Immature Granulocytes % 0.3 % (0-4); Lymphocytes # 2.2 K/mcL (0.6-4.6); Lymphocytes % 18.6 %; Mean Corpuscular HGB Conc 31.1 g/dL (31.6-35.5); Mean Corpuscular Hemoglobin 28.4 pg (28.0-33.3); Mean Corpuscular Volume 91.4 fL (83.0-100.0); Mean Platelet Volume 9.3 fL (9.4-12.4); Monocytes # 0.5 K/mcL (0.0-1.3); Monocytes % 4.1 %; Neutrophils # 8.9 K/mcL (1.6-8.9); Platelet Count 401 K/mcL (140-400); Red Blood Count 3.73 M/mcL (4.19-5.50); Red Cell Distribution Width 12.7 % (11.5-14.5); Segmented Neutrophils % 75.9 %
[2021-02-13 06:49] LABS: White Blood Count 11.7 K/mcL (4.3-11.1)
[2021-02-13 07:11] LABS: Calcium 8.9 mg/dL (8.6-10.3); Potassium 5.9 mEq/L (3.5-5.1)
[2021-02-13 07:21] LABS: INR 1.3; Prothrombin Time 14.6 Seconds (9.4-12.1)
[2021-02-13] MEDS ORDERED: Insulin Human Regular 10 UNIT in 0.9 % Sodium Chloride 10 ML IV ONE (07:28)
[2021-02-13] MEDS: Darunavir/Cobicistat [Prezcobix 800 Mg-150 Mg Tablet PO SCH (08:36)
[2021-02-13] MEDS: Multivit/Ca/Min/Fe/FA 1 TAB TABLET PO SCH (08:57)
[2021-02-13] MEDS: carvediloL 6.25 MG TABLET PO SCH ×2 (08:57→17:01)
[2021-02-13] MEDS: Gabapentin 300 MG CAPSULE PO SCH ×2 (08:57→20:25)
[2021-02-13] MEDS: Insulin LISPRO 300 UNITS/3 ML VIAL SUBQ SCH ×4 (08:57→20:25)
[2021-02-13] MEDS: SODIUM ZIRCONIUM CYCLOSILICATE 5 GM POWD.PACK PO SCH (11:46)
[2021-02-13] MEDS: Heparin 25,000 UNIT/250 ML 25,000 UNIT/250 ML IV.SOLN IVC SCH (14:23)
[2021-02-13] MEDS: Insulin DETEMIR 100 UNIT/ML X5UNITS SUBQ SCH (14:24)
[2021-02-14 05:02] LABS: Basophils % 0.2 %; Eosinophils # 0.2 K/mcL (0.0-0.6); Eosinophils % 2.2 %; Hematocrit 29.4 % (37.5-50.1); Hemoglobin 9.5 g/dL (12.9-16.9); Immature Granulocytes % 0.1 % (0-4); Lymphocytes % 36.4 %; Mean Corpuscular HGB Conc 32.3 g/dL (31.6-35.5); Mean Corpuscular Hemoglobin 29.1 pg (28.0-33.3); Mean Corpuscular Volume 90.2 fL (83.0-100.0); Mean Platelet Volume 9.3 fL (9.4-12.4); Monocytes # 0.8 K/mcL (0.0-1.3); Monocytes % 10.1 %; Neutrophils # 4.2 K/mcL (1.6-8.9); Platelet Count 337 K/mcL (140-400); Red Blood Count 3.26 M/mcL (4.19-5.50); White Blood Count 8.1 K/mcL (4.3-11.1)
[2021-02-14 05:18] LABS: INR 1.2; Prothrombin Time 13.6 Seconds (9.4-12.1)
[2021-02-14 05:22] LABS: Calcium 8.8 mg/dL (8.6-10.3); Potassium 4.7 mEq/L (3.5-5.1)
[2021-02-14] MEDS: Heparin 25,000 UNIT/250 ML 25,000 UNIT/250 ML IV.SOLN IVC SCH ×2 (08:16→13:29)
[2021-02-14] MEDS: carvediloL 6.25 MG TABLET PO SCH ×2 (08:17→16:58)
[2021-02-14] MEDS: Multivit/Ca/Min/Fe/FA 1 TAB TABLET PO SCH (08:17)
[2021-02-14] MEDS: Gabapentin 300 MG CAPSULE PO SCH ×2 (08:17→20:13)
[2021-02-14] MEDS: SODIUM ZIRCONIUM CYCLOSILICATE 5 GM POWD.PACK PO SCH (08:17)
[2021-02-14] MEDS: Insulin DETEMIR 100 UNIT/ML X5UNITS SUBQ SCH (08:17)
[2021-02-14] MEDS: Insulin LISPRO 300 UNITS/3 ML VIAL SUBQ SCH ×4 (08:18→20:14)
[2021-02-14] MEDS: Darunavir/Cobicistat [Prezcobix 800 Mg-150 Mg Tablet PO SCH (08:24)
[2021-02-15] MEDS: Heparin 25,000 UNIT/250 ML 25,000 UNIT/250 ML IV.SOLN IVC SCH (02:14)
[2021-02-15 06:24] LABS: Hematocrit 30.2 % (37.5-50.1); Hemoglobin 9.6 g/dL (12.9-16.9); Mean Corpuscular HGB Conc 31.8 g/dL (31.6-35.5); Mean Corpuscular Hemoglobin 28.5 pg (28.0-33.3); Mean Corpuscular Volume 89.6 fL (83.0-100.0); Mean Platelet Volume 9.3 fL (9.4-12.4); Platelet Count 285 K/mcL (140-400); Red Blood Count 3.37 M/mcL (4.19-5.50); Red Cell Distribution Width 12.7 % (11.5-14.5); White Blood Count 6.2 K/mcL (4.3-11.1)
[2021-02-15 06:33] LABS: INR 1.1
[2021-02-15 06:46] LABS: Calcium 8.9 mg/dL (8.6-10.3); Potassium 5.3 mEq/L (3.5-5.1)
[2021-02-15 06:53] VITALS: BP 145/70; PULSE 72; TEMP 97.8; O2SAT 94
[2021-02-15] MEDS: SODIUM ZIRCONIUM CYCLOSILICATE 5 GM POWD.PACK PO SCH (07:46)
[2021-02-15] MEDS: Gabapentin 300 MG CAPSULE PO SCH (07:46)
[2021-02-15] MEDS: Insulin LISPRO 300 UNITS/3 ML VIAL SUBQ SCH (07:46)
[2021-02-15] MEDS: carvediloL 6.25 MG TABLET PO SCH (07:46)
[2021-02-15] MEDS: Darunavir/Cobicistat [Prezcobix 800 Mg-150 Mg Tablet PO SCH (07:46)
[2021-02-15] MEDS: Insulin DETEMIR 100 UNIT/ML X5UNITS SUBQ SCH (07:46)
[2021-02-15] MEDS: Multivit/Ca/Min/Fe/FA 1 TAB TABLET PO SCH (07:46)
[2021-02-15] MEDS ORDERED: Insulin Human Regular 10 UNIT in 0.9 % Sodium Chloride 10 ML IV ONE (08:32)
[2021-02-15] MEDS ORDERED: *HR* Enoxaparin 100 MG/ML SYRINGE SQ SCH (10:30)
== END 2021-02-15 11:37 | disposition home or self-care (01) | DRG 683 ==
LOC: 3BNU 18:29 → EMEROOARM 18:29 → SUATTDRO 02-12 00:37 → 3BNU 02-12 01:21 → SUATTDRO 02-13 12:54
PROVIDERS: ADMIT Family Medicine; ATTEND Family Medicine

== ENCOUNTER 2021-02-22 08:05 | Observation (INO) ==
[2021-02-22] MEDS ORDERED: Insulin Human Regular 10 UNIT in 0.9 % Sodium Chloride 10 ML IV ONE (09:15)
[2021-02-22] MEDS ORDERED: *HR* Propofol 200 MG/20 ML VIAL IVP ONE (09:24)
[2021-02-22] MEDS ORDERED: carvediloL 6.25 MG TABLET PO ONE (09:31)
[2021-02-22] MEDS: 0.9 % Sodium Chloride 500 ML IVC SCH ×2 (09:35→17:19)
[2021-02-22] MEDS ORDERED: *HR* Succinylcholine 200 MG/10 ML VIAL IVP ONE (09:49)
[2021-02-22] MEDS ORDERED: Lidocaine HCL 4 ML Topical Solution (Laryng-O-Jet Kit Sterile Pak) TP ONE (09:55)
[2021-02-22] MEDS ORDERED: Lidocaine -MPF 2% 5 ML VIAL ONE (09:56)
[2021-02-22] MEDS ORDERED: Acetaminophen 325 MG TABLET PO PRN (14:11)
[2021-02-22] MEDS ORDERED: Naloxone 0.4 MG/ML INJ IVP PRN (14:11)
[2021-02-22] MEDS ORDERED: Ondansetron 4 MG/2 ML VIAL IVP PRN (14:11)
[2021-02-22] MEDS ORDERED: *HR* HYDROcodone/Acet 10/325 mg TABLET PO PRN (14:12)
[2021-02-22 14:25] LABS: Basophils % 0.4 %; Eosinophils % 0.5 %; Hematocrit 33.7 % (37.5-50.1); Hemoglobin 10.4 g/dL (12.9-16.9); Immature Granulocytes % 0.4 % (0-4); Lymphocytes # 1.3 K/mcL (0.6-4.6); Lymphocytes % 15.9 %; Mean Corpuscular HGB Conc 30.9 g/dL (31.6-35.5); Mean Corpuscular Hemoglobin 28.6 pg (28.0-33.3); Mean Corpuscular Volume 92.6 fL (83.0-100.0); Mean Platelet Volume 9.6 fL (9.4-12.4); Monocytes # 0.7 K/mcL (0.0-1.3); Monocytes % 8.4 %; Neutrophils # 6.3 K/mcL (1.6-8.9); Platelet Count 263 K/mcL (140-400); Red Blood Count 3.64 M/mcL (4.19-5.50); Red Cell Distribution Width 13.3 % (11.5-14.5); Segmented Neutrophils % 74.4 %; White Blood Count 8.4 K/mcL (4.3-11.1)
[2021-02-22 14:57] LABS: Potassium 5.6 mEq/L (3.5-5.1)
[2021-02-22 17:03] LABS: VBG HCO3 18 mEq/L (21-27); VBG PCO2 36 mmHg (41-51); VBG PH 7.32 pH Units (7.32-7.42); VBG PO2 173 mmHg (25-50)
[2021-02-22] MEDS: carvediloL 6.25 MG TABLET PO SCH (17:18)
[2021-02-22] MEDS ORDERED: D5% in Water 1,000 ML IVC PRN (17:21)
[2021-02-22] MEDS ORDERED: Dextrose Gel 15 GM/37.5 ML TUBE PO PRN ×2 (17:21)
[2021-02-22] MEDS ORDERED: *HR* Dextrose 50 % in Water (Syg) 50 ML SYRINGE IVP PRN (17:21)
[2021-02-22] MEDS ORDERED: Insulin LISPRO 300 UNITS/3 ML VIAL SUBQ SCH (17:30)
[2021-02-22] MEDS: Insulin LISPRO 300 UNITS/3 ML VIAL SUBQ SCH (17:53)
[2021-02-22] MEDS: Gabapentin 300 MG CAPSULE PO SCH (20:02)
[2021-02-22] MEDS ORDERED: Melatonin 3 MG TABLET PO ONE (20:30)
[2021-02-22] MEDS: Insulin DETEMIR 100 UNIT/ML X5UNITS SUBQ SCH (20:39)
[2021-02-22] MEDS ORDERED: Insulin DETEMIR 100 UNIT/ML X5UNITS SUBQ SCH (21:00)
[2021-02-22 22:16] LABS: VBG HCO3 19 mEq/L (21-27); VBG PCO2 27 mmHg (41-51); VBG PH 7.44 pH Units (7.32-7.42); VBG PO2 180 mmHg (25-50)
[2021-02-22 22:44] LABS: Potassium 4.6 mEq/L (3.5-5.1)
[2021-02-23] MEDS: 0.9 % Sodium Chloride 500 ML IVC SCH (02:00)
[2021-02-23 05:42] LABS: Calcium 8.9 mg/dL (8.6-10.3); Potassium 4.4 mEq/L (3.5-5.1)
[2021-02-23] MEDS ORDERED: Lidocaine HCL 4 ML Topical Solution (Laryng-O-Jet Kit Sterile Pak) TP ONE (07:17)
[2021-02-23] MEDS ORDERED: Lidocaine -MPF 2% 5 ML VIAL ONE (07:58)
[2021-02-23] MEDS ORDERED: EPHEDrine 50 MG/ML VIAL ONE (07:58)
[2021-02-23] MEDS ORDERED: *HR* Propofol 200 MG/20 ML VIAL IVP ONE (07:58)
[2021-02-23] MEDS ORDERED: *HR* Rocuronium Bromide 50 MG/5 ML VIAL ONE (07:58)
[2021-02-23] MEDS: carvediloL 6.25 MG TABLET PO SCH ×2 (08:15→17:06)
[2021-02-23] MEDS ORDERED: Ondansetron 4 MG/2 ML VIAL ONE (09:02)
[2021-02-23] MEDS ORDERED: *HR* FentaNYL (PF) 100 MCG/2 ML VIAL ONE (09:26)
[2021-02-23] MEDS: Insulin LISPRO 300 UNITS/3 ML VIAL SUBQ SCH ×3 (10:06→17:00)
[2021-02-23 11:21] LABS: Source of Body Fluid RML BAL
[2021-02-23] MEDS: Gabapentin 300 MG CAPSULE PO SCH ×2 (11:59→20:23)
[2021-02-23] MEDS: DARUNAVIR PO SCH (12:00)
[2021-02-23] MEDS: COBICISTAT PO SCH (12:00)
[2021-02-23 12:56] LABS: Appearance of Body Fluid Hazy (Clear); Volume of Body Fluid 27 mL
[2021-02-23] MEDS ORDERED: NON-FORMULARY MEDICATION 1 EACH EACH (Insulin Glargine,Hum.Rec.Anlog [Lantus Solostar] 100 SQ SCH (18:00)
[2021-02-23] MEDS ORDERED: Melatonin 3 MG TABLET PO PRN (20:16)
[2021-02-23] MEDS: Insulin DETEMIR 100 UNIT/ML X5UNITS SUBQ SCH (20:23)
[2021-02-24] MEDS: 0.9 % Sodium Chloride 500 ML IVC SCH ×3 (03:38→12:12)
[2021-02-24 06:22] LABS: Basophils % 0.1 %; Eosinophils % 0.2 %; Hemoglobin 10.3 g/dL (12.9-16.9); Immature Granulocytes % 0.4 % (0-4); Lymphocytes # 1.5 K/mcL (0.6-4.6); Lymphocytes % 19.2 %; Mean Corpuscular HGB Conc 31.2 g/dL (31.6-35.5); Mean Corpuscular Hemoglobin 28.2 pg (28.0-33.3); Mean Corpuscular Volume 90.4 fL (83.0-100.0); Mean Platelet Volume 9.3 fL (9.4-12.4); Monocytes # 0.7 K/mcL (0.0-1.3); Monocytes % 9.1 %; Neutrophils # 5.7 K/mcL (1.6-8.9); Platelet Count 326 K/mcL (140-400); Red Blood Count 3.65 M/mcL (4.19-5.50); Red Cell Distribution Width 13.2 % (11.5-14.5)
[2021-02-24 06:32] LABS: Prothrombin Time 10.6 Seconds (9.4-12.1)
[2021-02-24 06:51] LABS: Calcium 9.2 mg/dL (8.6-10.3); Potassium 4.8 mEq/L (3.5-5.1)
[2021-02-24] MEDS: Gabapentin 300 MG CAPSULE PO SCH (07:59)
[2021-02-24] MEDS: carvediloL 6.25 MG TABLET PO SCH ×2 (07:59→16:03)
[2021-02-24] MEDS: Insulin LISPRO 300 UNITS/3 ML VIAL SUBQ SCH ×3 (08:00→16:02)
[2021-02-24] MEDS: DARUNAVIR PO SCH (08:00)
[2021-02-24] MEDS: COBICISTAT PO SCH (08:00)
[2021-02-24 16:04] VITALS: TEMP 98.9; O2SAT 93
[2021-02-24 16:10] VITALS: BP 171/81; PULSE 88
[2021-02-25 11:36] LABS: Influenza A PCR Body Fluid NOT DETECTED; Influenza B PCR Body Fluid NOT DETECTED; RVP Body Fluid Source BAL
[2021-02-25 14:07] LABS: RSV PCR Body Fluid NOT DETECTED
[2021-02-28] MEDS ORDERED: Ergocalciferol (VIT D2) 50,000 UNIT (1.25MG) CAP PO SCH (09:00)
== END 2021-02-24 16:29 | disposition home or self-care (01) ==
LOC: SAMDAY 08:05 → 2NNU 08:05 → SUATTDRO 13:54 → 2ANU 02-23 06:29
PROVIDERS: ADMIT Internal Medicine; ATTEND Internal Medicine